=== PATIENT | male | born 1960 | race Two or more races ===

== ENCOUNTER 2024-07-02 06:31 | Day surgery (SDC) | payer OTHER ==
[~2024-07-02] VITALS: Ht 182.9 cm; Wt 95.3 kg
[~2024-07-02 06:31] MED LIST: ASPI-543 PO; COEN400C8 OR; OMEG1400 PO; TURM500C3 PO
[2024-07-02] MEDS ORDERED: fentaNYL CITRATE 100 MCG/2 ML VL IV ONE (07:30)
[2024-07-02] MEDS ORDERED: LIDOCAINE VISCOUS 2% 15ML UD PO ONE (07:30)
[2024-07-02] MEDS ORDERED: MIDAZOLAM HCL 2MG/2ML 2ml VIAL (1mg/ml) IV ONE (07:30)
--- NOTE | 2024-07-02 08:53 | DVHOP2 ---
Operative Report Operative Report CARDIAC RESEARCH [facility] PROCEDURE REPORT [place], [place] Date of Service: 07/02/24 Event Crew Technician: Abigail Mello MD PROCEDURES PERFORMED: trans esophageal echocardiogram, conscious sedation <15 mins, doppler assesment complete RONNIE, PREOPERATIVE DIAGNOSES: Aortic regurg POSTOP DIAGNOSIS: aortic regurgu DESCRIPTION OF PROCEDURE: The patient or appropriate family signed informed consent understanding the risks, benefits and alternatives of the procedure, they wished to proceed. The patient was brought to the cardiac director of cardiac cath lab in n.p.o. state. the patient was given 15 ml of oral viscous lidocaine. the patient was placed in a left lateral decubitus position with bite block in mouth. NExt conscious sedation was administered per director of cardiac cath lab protocol with __2 mg of versed and __50_ mcg of fentanyl. Next a RONNIE probe was advanced to the mid esophagus with ease and multiple planar images obtained. At the completion of the procedure , probe was removed and there were no immediate complications. FINDINGS: Left Ventricle: Normal LV size and function, LVEF estimated at 60% Right Ventricle: NOrmal RV size and function Left atrium: normal LA Right atrium: normal RA Left atrial appendage: no thrombus noted, Aortic valve: trileaflet valve, no < structuraly normal, very eccentric moderat to sever AI that hugs the anterior leaflet of the MV, this AI appears adjacent to LCC Mitral Valve: structurally normal, trace MR no MS Tricuspid Valve: trace tricuspid regurgitaiton, no TS Pulmonic Valve: strucutrally normal, no severe PIor PS Interatrial septum: negative color flow for R to L shunt Ascending aorta: no severe plaquing needs annual echo and LV measurements ABIGAIL MELLO MD Jul 02, 2024 08:53
--- NOTE | 2024-07-02 11:39 | ECG ---
[facility] Test Date: 2024-07-02 Test Time: 07:50:51 Pat Name: FLETCHER DAVIS Department: Room: Gender: M Dance Entertainer: : 1960 Requested By: ABIGAIL MELLO Order Number: [id number] Reading MD: Measurements Intervals [facility] [place] Rate: 71 P: 74 SD: 144 QRS: 29 QRSD: 78 T: 38 QT: 398 QTc: 432 Interpretive Statements Normal sinus rhythm Junctional ST depression, probably normal Please click the below link to view image of tracing.
== END 2024-07-02 10:00 | disposition home or self-care (01) ==
LOC: CATH 06:31
PROVIDERS: ATTEND Internal Medicine
DX: I35.1 Nonrheumatic aortic (valve) insufficiency (principal); I08.3 Combined rheumatic disorders of mitral, aortic and tricuspid valves; R06.02 Shortness of breath; R07.9 Chest pain, unspecified; I51.7 Cardiomegaly; C85.90 Non-Hodgkin lymphoma, unspecified, unspecified site; R93.1 Abnormal findings on diagnostic imaging of heart and coronary circulation; Z88.8 Allergy status to other drugs, medicaments and biological substances
CPT/HCPCS: 93005; 93312; J2250; J3010; 99152